=== PATIENT | male | born 1965 | race Caucasian/White ===

== ENCOUNTER 2023-02-21 09:13 | Outpatient (CLI) | payer OTHER, SELFPAY ==
[2023-02-26 19:14] LABS: Testosterone Free 43.9 pg/mL (35.0-155.0); Testosterone Total 260 ng/dL (250-1100)
== END 2023-02-21 09:14 | disposition home or self-care (01) ==
LOC: ANHGOSHLAB 09:14
PROVIDERS: PCP Internal Medicine; Visit Provider Internal Medicine
DX: E29.1 Testicular hypofunction (principal)
CPT/HCPCS: 36415; 84402; 84403